=== PATIENT | female | born 1970 | race Hispanic/Latino ===

== ENCOUNTER 2023-02-09 18:04 | Emergency (ER) | payer SELFPAY ==
[2023-02-09 18:22] VITALS: BP 134/80; PULSE 83; RESP 16; TEMP 36.5; O2SAT 100; BMI 30.2
--- NOTE | 2023-02-09 21:37 | ED_ITS ---
HPI - General Adult General Chief complaint: Ear Stated complaint: dizziness/almost syncope/ear ringing Time Seen by Provider: 02/09/23 21:37 Source: patient and family Mode of arrival: Ambulatory History of Present Illness HPI narrative: 52-year-old woman with no significant medical history presents with acute onset left ear tinnitus, decreased hearing loss dizziness and lightheadedness that has now been present for a week. She has tried [id number] Dramamine, emotions sickness pill recommended by the pharmacist with the Dramamine did not work, an [id number] medication called flavum noise none of these have made any dif ference. She is not reporting any additional stroke-like symptoms she notes that she has been having headaches which is very unusual for her. She did attributes this to recent stressors. She has not been using ibuprofen, aspirin or Tylenol. There has been no cognitive difficulties, no visual changes, no gait disturbance and no peripheral weakness or paresthesias. She describes no palpitations, chest pain, shortness of breath, orthopnea. She has not had any recent viral illnesses. Related Data Previous Rx's Medication Instructions Recorded ondansetron 4 mg disintegrating 4 mg PO Q8H PRN nausea and 02/10/23 tablet vomiting #10 tabs Allergies Allergy/AdvReac Type Severity Reaction Status Date / Time No Known Drug Allergies Allergy Verified 02/09/23 18:22 Review of Systems Review of Systems Narrative: Pertinent positive and negative findings as per HPI Patient History Surgical History Status post hysterectomy Status post surgery (07/14/14) Family History Father High cholesterol Mother Hypertension Social History Smoking Status: Never smoker Smoking Status: Never smoker alcohol intake frequency: holidays/special occasions only Substance Use Type: does not use Exam Initial Vital Signs Initial Vital Signs: Vital Signs Temperature 97.7 F 02/09/23 18:22 Pulse Rate 83 02/09/23 18:22 Respiratory Rate 16 02/09/23 18:22 Blood Pressure 134/80 02/09/23 18:22 Pulse Oximetry 100 02/09/23 18:22 Oxygen Delivery Method Room Air 02/09/23 18:22 General: Healthy appearing, in no acute distress. Able to give a complete and coherent history. Well-nourished well-developed HEENT: Moist mucous membranes, normal sclera with reactive pupils, tympanic membranes bilaterally are normal. She does have subjectively decreased hearing in the left ear. She does not have nystagmus and does not have any vertigo that can be induced with positional changes Neck: No JVD, supple, no cervical adenopathy Respiratory: Lungs are clear to auscultation, no wheezing no rales no rhonchi. Full and symmetrical air movement Cardiac: Regular rate and rhythm no murmurs no bruits Abdomen: Soft, nontender, good bowel tones, no flank pain Skin: Warm and dry, no rashes Neurologic: Grossly neurologically intact with no obvious asymmetries or abnormalities aside from the ear related main complaints Extremities: No trauma, well perfused Psych: Cooperative, appropriate insight and affect Course Orders Ordered: ED Orders 02/09/23 21:31 COVID19 -Nasal RAPID Stat 02/09/23 21:48 CT head/brain wo/w con Stat 02/09/23 22:21 Complete Blood Count AUTO DIFF Stat Comprehensive Metabolic Panel Stat Discontinued Medications Ondansetron HCl (Ondansetron 4 Mg Odt Prepack) 1 bottle MISC SEEINSTR ONE Stop: 02/10/23 01:47 Vital Signs Vital signs: Vital Signs - 8 hr 02/09/23 18:22 02/09/23 23:45 Temperature 97.7 F 97.8 F Pulse Rate 83 78 Respiratory Rate 16 18 Blood Pressure 134/80 140/78 Pulse Oximetry 100 98 Oxygen Delivery Method Room Air Room Air Medical Decision Making Lab Data 02/09/23 22:21 02/09/23 22:21 Labs: Lab Results 02/09/23 02/09/23 02/09/23 Range/Units 21:31 22:21 22:21 WBC 8.0 (4.5-11.0) X10^3/uL RBC 4.73 (4.0-5.2) X10^6/uL Hgb 14.3 (12.0-16.0) g/dL Hct 43.0 (36-46) % MCV 90.8 (80-100) fL MCH 30.3 (26-34) PG MCHC 33.3 (30-36) % RDW 13.5 (11.6-14.8) % Plt Count 283 (150-400) X10^3/uL Neut % (Auto) 47.9 L (50-75) % Lymph % (Auto) 38.7 (25-40) % [place] % (Auto) 8.7 (3-14) % Eos % (Auto) 3.5 (2-4) % Baso % (Auto) 1.2 (0-2) % Neut # (Auto) 3800 (6114-5085) /uL Lymph # (Auto) 3100 (1272-0618) /uL [place] # (Auto) 700 (0-900) /uL Eos # (Auto) 300 (0-450) /uL Baso # (Auto) 100 (0-100) /uL Sodium 138 (137-145) mmol/L Potassium 4.0 (3.4-5.1) mmol/L Chloride 101 (98-107) mmol/L Carbon Dioxide 27 (22-32) mmol/L BUN 17 (7-17) mg/dL Creatinine 0.64 (0.52-1.04) mg/dL Estimated GFR > 60 (>60) mL/min BUN/Creatinine Ratio 26.6 H (6-22) Glucose 104 H (70-100) mg/dL Calcium 9.9 (8.4-10.2) mg/dL Total Bilirubin 0.4 (0.2-1.3) mg/dL AST 53 H (14-36) IU/L ALT 65 H (<35) IU/L Alkaline Phosphatase 59 (38-126) U/L Total Protein 7.7 (6.3-8.2) g/dL Albumin 4.5 (3.5-5.0) g/dL Globulin 3.2 (1.7-4.1) g/dL Albumin/Globulin Ratio 1.4 (1.0-2.8) SARS-CoV-2 (PCR) Negative (Negative) MDM Narrative Medical decision making narrative: CC: A week of progressive tinnitus, hearing loss, vertigo left ear with associated headaches Complicating co-morbidities: None Data collected from: patient, niece who is helping with interpretation Differential considered: Vestibulitis, labyrinthitis, middle ear infection, cerumen occlusion, acoustic neuroma, stroke, other brain mass Exam documented above, pertinent findings include: No significant abnormalities aside from decrease hearing loss on the left side no positional nystagmus and normal tympanic membranes Lab Test results independently reviewed as above. Pertinent findings: CBC is unremarkable Chemistries are reassuring encourage she does have slightly elevated AST and ALT Imaging studies independently reviewed: Head CT done with and without contrast shows no significant abnormalities Discussion: 52-year-old woman with tinnitus hearing loss in the left ear with relative dizziness. This does not appear to be a otitis media, cerumen occlusion, benign peripheral vertigo. CT scan is unremarkable with no masses or mass effect. Labyrinthitis remains within the differential. This point reassurance is given, patient is discharged home will ask her to follow-up with her primary care physician. She has tried all appropriate medications to help with the vertigo at this time. Encouraged her to follow up with her primary care doctor and if symptoms persist she may need ENT referral. Each of these is discussed with her questions are answered and she is safe for discharge Discharge Plan Departure Patient Disposition: Home Clinical Impression: Acute hearing loss of left ear Acute labyrinthitis Qualifiers: Laterality: left Qualified Code(s): H83.02 - Labyrinthitis, left ear Tinnitus Qualifiers: Laterality: left Qualified Code(s): H93.12 - Tinnitus, left ear Instructions: DI for Labyrinthitis Activity Restrictions/Additional Instructions: Thank you for coming in today I did not find any evidence for tumors or masses, obvious bacterial infections, ear wax to block the ear. I suspect that this is an infection of the inner ear on the left side. I have given you some Zofran to try to use for nausea and see if that also helps with the dizziness. If it does help then you can fill the prescription that I have given you. If your symptoms persist for over a week, I would encourage you to follow up with your primary care doctor. If they continue beyond that you may need a referral to an ear nose and throat Specialty doctor. If you find that you are getting worse or develop any new symptoms, please feel free to return to the emergency department for further evaluation. Prescriptions: New ondansetron 4 mg tablet,disintegrating 4 mg PO Q8H PRN (Reason: nausea and vomiting) Qty: 10 0RF Referrals: Matthew Dunn MD [Primary Care Provider] - Stand Alone Forms: Patient Portal/API
--- NOTE | 2023-02-09 21:48 | DI.CT.S_ITS ---
P or or ROCEDURE: CT HEAD/BRAIN WO/W CON INDICATIONS: acute hearing loss, tinnitis, vertigo L side TECHNIQUE: 4.5 mm thick angled axial sections acquired from the foramen magnum to the vertex before and after the administration of intravenous contrast, with coronal and sagittal reformats. For radiation dose reduction, the following was used: automated exposure control, adjustment of mA and/or kV according to patient size. COMPARISON: None. FINDINGS: Image quality: Excellent. CSF spaces: Basal cisterns are patent. No extra-axial fluid collections. Ventricles are normal in size and shape. Brain: No intracranial hemorrhage, mass, or mass effect. Vogt-white matter interface appears preserved. No definite abnormal intracranial enhancement. Skull and face: Calvarium and visualized facial bones appear intact, without suspicious lesions. Sinuses: Visualized sinuses and mastoids are clear. IMPRESSION: 1. No definite acute intracranial abnormality. Dictated by: Joshua Forte M.D. on 02/09/2023 at 22:55 Approved by: Joshua Forte M.D. on 02/09/2023 at 22:57
[2023-02-09 22:12] LABS: COVID19 -Nasal RAPID Negative (Negative)
[2023-02-09 22:38] LABS: Add Manual Diff / Slide Review NO; Basophils Absolute Auto 100 /uL (0-100); Basophils Percent Auto 1.2 % (0-2); Eosinophils Absolute Auto 300 /uL (0-450); Eosinophils Percent Auto 3.5 % (2-4); Hemoglobin 14.3 g/dL (12.0-16.0); Lymphocytes Absolute Auto 3100 /uL (1100-4500); Lymphocytes Percent Auto 38.7 % (25-40); Mean Corpuscular HGB Conc 33.3 % (30-36); Mean Corpuscular Hemoglobin 30.3 PG (26-34); Mean Corpuscular Volume 90.8 fL (80-100); Monocytes Absolute Auto 700 /uL (0-900); Monocytes Percent Auto 8.7 % (3-14); Neutrophils Absolute Auto 3800 /uL (1500-7000); Neutrophils Percent Auto 47.9 % (50-75); Platelet Count 283 X10^3/uL (150-400); Red Blood Cell Count 4.73 X10^6/uL (4.0-5.2); Red Cell Distribution Width 13.5 % (11.6-14.8)
[2023-02-09 22:50] LABS: Alanine Aminotransferase 65 IU/L (<35); Albumin 4.5 g/dL (3.5-5.0); Albumin Globulin Ratio 1.4 (1.0-2.8); Alkaline Phosphatase 59 U/L (38-126); Aspartate Aminotransferase 53 IU/L (14-36); BUN Creatinine Ratio 26.6 (6-22); Bilirubin Total 0.4 mg/dL (0.2-1.3); Blood Urea Nitrogen 17 mg/dL (7-17); Calcium 9.9 mg/dL (8.4-10.2); Carbon Dioxide 27 mmol/L (22-32); Chloride 101 mmol/L (98-107); Estimated Glomerular Filt Rate > 60 mL/min (>60); Globulin 3.2 g/dL (1.7-4.1); Glucose 104 mg/dL (70-100); HEMOLYSIS 22 (0-50); Sodium 138 mmol/L (137-145); Total Protein 7.7 g/dL (6.3-8.2)
[2023-02-09 23:45] VITALS: BP 140/78; PULSE 78; RESP 18; TEMP 36.6; O2SAT 98
[2023-02-10] MEDS: ONDANSETRON 4 MG ODT PREPACK 1 BOTTLE MISC (02:10)
[2023-02-10 02:11] VITALS: BP 158/93; PULSE 73; RESP 16; O2SAT 100
== END 2023-02-10 02:12 | disposition home or self-care (01) ==
PROVIDERS: Emergency Provider Emergency Medicine; Family Provider Family Medicine; PCP Family Medicine
DX: H83.02 Labyrinthitis, left ear (principal); H93.12 Tinnitus, left ear; H91.92 Unspecified hearing loss, left ear; Z20.822 Contact with and (suspected) exposure to COVID-19
CPT/HCPCS: 70470; 80053; 85025; 87635; 99282; 99284; C9803; Q9967

== ENCOUNTER → 2024-05-05 09:21 | Outpatient (CLI) | payer OTHER, SELFPAY ==
[2024-05-05 10:15] LABS: Alanine Aminotransferase 41 IU/L (<35); Albumin 3.9 g/dL (3.5-5.0); Albumin Globulin Ratio 1.4 (1.0-2.8); Alkaline Phosphatase 69 U/L (38-126); Aspartate Aminotransferase 39 IU/L (14-36); BUN Creatinine Ratio 26.8 (6-22); Bilirubin Total 0.6 mg/dL (0.2-1.3); Blood Urea Nitrogen 15 mg/dL (7-17); Calcium 9.4 mg/dL (8.4-10.2); Carbon Dioxide 31 mmol/L (22-32); Chloride 101 mmol/L (98-107); Estimated Glomerular Filt Rate > 60 mL/min (>60); Globulin 2.8 g/dL (1.7-4.1); Glucose 115 mg/dL (70-100); HEMOLYSIS < 15 (0-50); Potassium 4.1 mmol/L (3.4-5.1); Sodium 135 mmol/L (137-145); Total Protein 6.7 g/dL (6.3-8.2)
[2024-05-05 10:37] LABS: Free T4, Direct Thyroxine 1.08 ng/dL (0.78-2.19)
[2024-05-05 10:51] LABS: Thyroid Stimulating Hormone 2.78 uIU/mL (0.47-4.68)
== END ==
PROVIDERS: Family Provider Family Medicine; PCP Family Medicine; Referring Provider Family Medicine; Visit Provider Family Medicine
DX: R73.03 Prediabetes (principal); E03.9 Hypothyroidism, unspecified
CPT/HCPCS: 36415; 80053; 83036; 84439; 84443